=== PATIENT | female | born 1960 | race Caucasian/White ===

== ENCOUNTER 2019-08-04 10:18 | Outpatient (CLI) | payer BC, OTHER ==
--- NOTE | 2019-08-04 10:46 | RAD ---
Exam:4 views right knee HISTORY: Chronic pain. COMPARISON: None FINDINGS: Chondrocalcinosis of the medial and lateral compartment. Mild tricompartmental loss of join t space height. No joint effusion. No fracture or malalignment. IMPRESSION: Chondrocalcinosis. Correlate for calcium pyrophosphate deposition.
--- NOTE | 2019-08-04 11:06 | RAD ---
LEFT KNEE 3 VIEWS: HISTORY: Knee pain. FINDINGS: The medial and lateral joint spaces are maintained. There is chondrocalcinosis involving both medial and lateral joint space. There are mild degenerative changes seen with spurring from the tibial spi netta. Lateral osteophytes are seen from the condyles and mild posterior osteophytes are seen from the posterior patella. No joint effusion. IMPRESSION: Mild to moderate degenerative changes as described. POS: THEA
== END 2019-08-04 10:19 | disposition home or self-care (01) ==
LOC: MADRAD 10:18
PROVIDERS: ATTEND Family Medicine
DX: M25.561 Pain in right knee (principal); M25.562 Pain in left knee; M17.12 Unilateral primary osteoarthritis, left knee; M11.261 Other chondrocalcinosis, right knee